=== PATIENT | female | born 1985 | race Caucasian/White ===

== ENCOUNTER 2019-02-03 19:41 | Outpatient (CLI) | payer MEDICAID ==
[2019-02-03 20:31] LABS: ADD UMIC NO; UR ASCORBIC ACID NEGATIVE (NEGATIVE); UR BILIRUBIN (Dip) NEGATIVE (NEGATIVE); UR BLOOD (Dip) NEGATIVE (NEGATIVE); UR CLARITY CLEAR (CLEAR); UR COLOR STRAW (YELLOW); UR GLUCOSE (Dip) NEGATIVE (NEGATIVE); UR KETONES (Dip) NEGATIVE (NEGATIVE); UR LEUKOCYTE ESTERASE (Dip) NEGATIVE Leu/ul (NEGATIVE); UR NITRITE (Dip) NEGATIVE (NEGATIVE); UR SPECIFIC GRAVITY (Dip) 1.005 (1.003-1.030); UR TOTAL PROTEIN (Dip) NEGATIVE (NEGATIVE); UR UROBILINOGEN (Dip) NEGATIVE (NEGATIVE)
[2019-02-03 20:33] LABS: ADD MAN DIFF? NO
[2019-02-03 20:34] LABS: WHITE BLOOD COUNT 10.3 10^3/ul (4.8-10.8)
[2019-02-03 20:34] LABS: BASOPHILS % 0.4 % (0.0-2.0); EOSINOPHILS # 0.1 10^3/ul (0.0-0.5); EOSINOPHILS % 1.2 % (0.0-7.0); HEMATOCRIT 34.7 % (37.0-47.0); HEMOGLOBIN 11.8 g/dl (12.0-16.0); LYMPHOCYTES # 1.7 10^3/ul (0.8-2.9); LYMPHOCYTES % 16.4 % (15.0-51.0); MEAN PLATELET VOLUME 10.2 fl (7.4-10.4); MONOCYTE # 0.7 10^3/ul (0.3-0.9); MONOCYTES % 6.7 % (0.0-11.0); NEUTROPHIL # 7.6 10^3/ul (1.6-7.5); NEUTROPHILS % 74.2 % (39.0-77.0); PLATELET COUNT 236 10^3/UL (140-415); RED BLOOD COUNT 3.69 10^6/ul (4.20-5.40); RED CELL DISTRIBUTION WIDTH 12.6 % (11.5-14.5)
[2019-02-03 20:56] LABS: ALANINE AMINOTRANSFERASE 20 IU/L (13-69); ALBUMIN 3.5 g/dl (3.3-4.9); ALBUMIN/GLOBULIN RATIO 1.16; ALKALINE PHOSPHATASE 67 IU/L (42-121); ANION GAP 12 (5-13); ASPARTATE AMINO TRANSFERASE 17 IU/L (15-46); BILIRUBIN,INDIRECT 0.3 mg/dl (0-1.1); BILIRUBIN,TOTAL 0.3 mg/dl (0.2-1.3); BLOOD UREA NITROGEN 9 mg/dl (7-20); CALCIUM 8.9 mg/dl (8.4-10.2); CARBON DIOXIDE 21 mmol/L (21-31); CHLORIDE 104 mmol/L (97-110); CREATININE 0.41 mg/dl (0.44-1.00); Estimated GFR > 60 mL/min (>60); GLUCOSE 88 mg/dl (70-220); POTASSIUM 3.9 mmol/L (3.5-5.1); SODIUM 137 mmol/L (135-144); TOTAL PROTEIN 6.5 g/dl (6.1-8.1)
== END 2019-02-03 21:45 | disposition home or self-care (01) ==
LOC: OBT 19:41 → L-D 19:43 → OBT 21:45
DX: O26.892 Other specified pregnancy related conditions, second trimester (principal); R10.2 Pelvic and perineal pain; Z3A.26 26 weeks gestation of pregnancy
CPT/HCPCS: 76815; 76817; 80053; 81003; 85025

== ENCOUNTER 2019-02-19 16:41 | Outpatient (CLI) | payer MEDICAID ==
[2019-02-19 17:51] LABS: WHITE BLOOD COUNT 8.8 10^3/ul (4.8-10.8)
[2019-02-19 17:51] LABS: ADD MAN DIFF? NO; BASOPHILS % 0.3 % (0.0-2.0); EOSINOPHILS # 0.1 10^3/ul (0.0-0.5); EOSINOPHILS % 0.8 % (0.0-7.0); HEMATOCRIT 34.1 % (37.0-47.0); HEMOGLOBIN 11.5 g/dl (12.0-16.0); LYMPHOCYTES # 1.4 10^3/ul (0.8-2.9); LYMPHOCYTES % 15.8 % (15.0-51.0); MEAN CORPUSCULAR HEMOGLOBIN 31.8 pg (29.0-33.0); MEAN CORPUSCULAR HGB CONC 33.7 g/dl (32.0-37.0); MEAN CORPUSCULAR VOLUME 94.2 fl (82.0-101.0); MEAN PLATELET VOLUME 10.2 fl (7.4-10.4); MONOCYTE # 0.7 10^3/ul (0.3-0.9); MONOCYTES % 7.5 % (0.0-11.0); NEUTROPHIL # 6.6 10^3/ul (1.6-7.5); NEUTROPHILS % 74.6 % (39.0-77.0); PLATELET COUNT 244 10^3/UL (140-415); RED BLOOD COUNT 3.62 10^6/ul (4.20-5.40); RED CELL DISTRIBUTION WIDTH 12.6 % (11.5-14.5)
[2019-02-19 17:57] LABS: ADD UMIC NO; UR ASCORBIC ACID NEGATIVE (NEGATIVE); UR BACTERIA FEW /HPF (NONE SEEN); UR BILIRUBIN (Dip) NEGATIVE (NEGATIVE); UR BLOOD (Dip) NEGATIVE (NEGATIVE); UR CLARITY SLIGHTLY CLOUDY (CLEAR); UR COLOR YELLOW (YELLOW); UR GLUCOSE (Dip) NEGATIVE (NEGATIVE); UR KETONES (Dip) NEGATIVE (NEGATIVE); UR LEUKOCYTE ESTERASE (Dip) NEGATIVE Leu/ul (NEGATIVE); UR NITRITE (Dip) NEGATIVE (NEGATIVE); UR RBC 1 /HPF (0-5); UR SPECIFIC GRAVITY (Dip) 1.012 (1.003-1.030); UR SQUAMOUS EPITHELIAL CELL FEW /HPF (FEW); UR TOTAL PROTEIN (Dip) NEGATIVE (NEGATIVE); UR UROBILINOGEN (Dip) NEGATIVE (NEGATIVE); UR WBC 2 /HPF (0-5)
[2019-02-19 18:10] LABS: ALANINE AMINOTRANSFERASE 19 IU/L (13-69); ALBUMIN 3.3 g/dl (3.3-4.9); ALKALINE PHOSPHATASE 83 IU/L (42-121); ANION GAP 8 (5-13); ASPARTATE AMINO TRANSFERASE 17 IU/L (15-46); BILIRUBIN,INDIRECT 0.2 mg/dl (0-1.1); BILIRUBIN,TOTAL 0.2 mg/dl (0.2-1.3); BLOOD UREA NITROGEN 10 mg/dl (7-20); CALCIUM 8.9 mg/dl (8.4-10.2); CARBON DIOXIDE 22 mmol/L (21-31); CHLORIDE 106 mmol/L (97-110); CREATININE 0.45 mg/dl (0.44-1.00); Estimated GFR > 60 mL/min (>60); GLUCOSE 96 mg/dl (70-220); SODIUM 136 mmol/L (135-144); TOTAL PROTEIN 6.3 g/dl (6.1-8.1)
[2019-02-19] MEDS: ACETAMINOPHEN 500 MG TAB PO (21:54)
== END 2019-02-19 23:10 | disposition home or self-care (01) ==
LOC: OBT 16:41 → L-D 16:42 → OBT 23:10
DX: O26.892 Other specified pregnancy related conditions, second trimester (principal); Z3A.28 28 weeks gestation of pregnancy; R10.2 Pelvic and perineal pain
CPT/HCPCS: 76700; 76818; 80053; 80076; 81001; 81003; 85025

== ENCOUNTER 2019-04-21 13:48 | Outpatient (CLI) | payer MEDICAID | END 2019-04-21 15:40 | disposition home or self-care (01) | LOC: OBT 13:48 → L-D 13:50 → OBT 15:40 | DX: O36.8130 Decreased fetal movements, third trimester, not applicable or unspecified (principal); Z3A.37 37 weeks gestation of pregnancy | CPT/HCPCS: 76818 ==

== ENCOUNTER 2019-05-14 22:42 | Inpatient (IN) | payer MEDICAID ==
[2019-05-15] MEDS ORDERED: BUTORPHANOL 2 MG INJ IV
[2019-05-15] MEDS ORDERED: IBUPROFEN 600 MG TAB PO
[2019-05-15] MEDS ORDERED: OXYTOCIN 30 UNITS/LR 500 ML IV ×2
[2019-05-15] MEDS ORDERED: CARBOPROST 250 MCG INJ IM
[2019-05-15] MEDS ORDERED: LIDOCAINE 1% (MPF) 30 ML INJ INJ
[2019-05-15] MEDS ORDERED: METHYLERGONOVINE 0.2 MG INJ IM
[2019-05-15] MEDS ORDERED: MISOPROSTOL 200 MCG TAB PR
[2019-05-15] MEDS ORDERED: MISOPROSTOL 50 MCG CAPSULE PO (01:00)
[2019-05-15] MEDS: LACTATED RINGER'S 1,000 ML IV ×3 (01:58→16:49)
[2019-05-15 02:16] LABS: ADD MAN DIFF? NO
[2019-05-15 02:18] LABS: WHITE BLOOD COUNT 8.6 10^3/ul (4.8-10.8)
[2019-05-15 02:18] LABS: BASOPHILS % 0.3 % (0.0-2.0); EOSINOPHILS # 0.1 10^3/ul (0.0-0.5); EOSINOPHILS % 0.9 % (0.0-7.0); HEMATOCRIT 39.5 % (37.0-47.0); HEMOGLOBIN 13.3 g/dl (12.0-16.0); LYMPHOCYTES % 23.5 % (15.0-51.0); MEAN CORPUSCULAR HGB CONC 33.7 g/dl (32.0-37.0); MEAN PLATELET VOLUME 12.1 fl (7.4-10.4); MONOCYTE # 0.7 10^3/ul (0.3-0.9); MONOCYTES % 7.5 % (0.0-11.0); NEUTROPHIL # 5.7 10^3/ul (1.6-7.5); NEUTROPHILS % 66.8 % (39.0-77.0); NUCLEATED RED BLOOD CELLS% 0.2 /100WBC (0.0-0.0); PLATELET COUNT 171 10^3/UL (140-415); RED BLOOD COUNT 4.16 10^6/ul (4.20-5.40); RED CELL DISTRIBUTION WIDTH 12.6 % (11.5-14.5)
[2019-05-15 02:38] LABS: INR 0.78; PT RATIO 0.9
[2019-05-15 02:39] LABS: PARTIAL THROMBOPLASTIN TIME 26.5 Sec (23.0-35.0)
[2019-05-15] MEDS: MISOPROSTOL 50 MCG CAPSULE PO ×5 (03:27→21:32)
[2019-05-15 15:51] LABS: RAPID PLASMA REAGIN NONREACTIVE (NR)
[2019-05-16] MEDS: LACTATED RINGER'S 1,000 ML IV ×3 (00:40→16:43)
[2019-05-16] MEDS: MISOPROSTOL 50 MCG CAPSULE PO (01:47)
[2019-05-16] MEDS: BUTORPHANOL 2 MG INJ IV ×3 (08:40→14:53)
[2019-05-16] MEDS: OXYTOCIN 30 UNITS/LR 500 ML IV (08:47)
[2019-05-17] MEDS: LACTATED RINGER'S 1,000 ML IV ×5 (00:03→22:04)
[2019-05-17] MEDS: OXYTOCIN 30 UNITS/LR 500 ML IV (00:13)
[2019-05-17] MEDS ORDERED: FENTAnyl 2MCG/ML-ROPIV 0.2% 100 ML (19:07)
[2019-05-18] MEDS: OXYTOCIN 30 UNITS/LR 500 ML IV ×3 (02:03→23:26)
[2019-05-18] MEDS ORDERED: ONDANSETRON 4 MG INJ IV ×2 (04:00→20:00)
[2019-05-18] MEDS ORDERED: NALOXONE (0.4 MG/ML) INJ IV ×2 (04:00→20:00)
[2019-05-18] MEDS: FENTAnyl 2MCG/ML-ROPIV 0.2% 100 ML BAG EPI ×2 (04:08→11:25)
[2019-05-18] MEDS: LACTATED RINGER'S 1,000 ML IV ×2 (06:17→14:13)
[2019-05-18] MEDS ORDERED: morphine SULFATE/PF (10 MG/10 ML) INJ (18:51)
[2019-05-18] MEDS ORDERED: ONDANSETRON 4 MG INJ (18:52)
[2019-05-18] MEDS ORDERED: OXYTOCIN 10 UNIT INJ ×2 (18:52→19:26)
[2019-05-18] MEDS ORDERED: PHENYLephrine 10 MG INJ (19:24)
[2019-05-18] MEDS ORDERED: morphine 2 MG INJ IV (20:00)
[2019-05-18] MEDS ORDERED: DIPHENHYDRAMINE 50 MG INJ IV (20:00)
[2019-05-18] MEDS: KETOROLAC 30 MG INJ IV (20:19)
[2019-05-18] MEDS: CEFAZOLIN 2 GM/50 ML (PMX) 50 ML IVPB (20:51)
[2019-05-18] MEDS ORDERED: HYDROCODONE/APAP (5/325) TAB PO (23:30)
[2019-05-18] MEDS: IBUPROFEN 800 MG TAB PO (23:30)
[2019-05-18] MEDS ORDERED: NACL 0.9% 3 ML SYG IV (23:30)
[2019-05-18] MEDS ORDERED: OXYTOCIN 30 UNITS/LR 500 ML IV (23:30)
[2019-05-18] MEDS ORDERED: LANOLIN HPA 1 PKT TOP (23:30)
[2019-05-18] MEDS ORDERED: NA PHOSPHATE/BIPHOS 133 ML ENEMA PR (23:30)
[2019-05-18] MEDS ORDERED: MISOPROSTOL 200 MCG TAB PR (23:30)
[2019-05-18] MEDS ORDERED: CARBOPROST 250 MCG INJ IM (23:30)
[2019-05-18] MEDS ORDERED: METHYLERGONOVINE 0.2 MG INJ IM (23:30)
[2019-05-19] MEDS: LACTATED RINGER'S 1,000 ML IV (04:35)
[2019-05-19] MEDS: IBUPROFEN 800 MG TAB PO ×3 (06:00→22:55)
[2019-05-19] MEDS: KETOROLAC 30 MG INJ IV ×2 (07:03→16:12)
[2019-05-19 08:11] LABS: ADD MAN DIFF? NO
[2019-05-19 08:15] LABS: BASOPHILS % 0.2 % (0.0-2.0); EOSINOPHILS # 0.1 10^3/ul (0.0-0.5); EOSINOPHILS % 0.4 % (0.0-7.0); HEMATOCRIT 31.7 % (37.0-47.0); HEMOGLOBIN 10.9 g/dl (12.0-16.0); LYMPHOCYTES # 1.4 10^3/ul (0.8-2.9); LYMPHOCYTES % 10.4 % (15.0-51.0); MEAN CORPUSCULAR HEMOGLOBIN 32.3 pg (29.0-33.0); MEAN CORPUSCULAR HGB CONC 34.4 g/dl (32.0-37.0); MEAN CORPUSCULAR VOLUME 94.1 fl (82.0-101.0); MEAN PLATELET VOLUME 11.8 fl (7.4-10.4); MONOCYTE # 1.1 10^3/ul (0.3-0.9); MONOCYTES % 8.1 % (0.0-11.0); NEUTROPHILS % 80.6 % (39.0-77.0); PLATELET COUNT 145 10^3/UL (140-415); RED BLOOD COUNT 3.37 10^6/ul (4.20-5.40); RED CELL DISTRIBUTION WIDTH 12.5 % (11.5-14.5)
[2019-05-19 08:15] LABS: WHITE BLOOD COUNT 13.6 10^3/ul (4.8-10.8)
[2019-05-19] MEDS: MINERAL OIL LIGHT 10 ML VIAL TOP (22:57)
[2019-05-20] MEDS: IBUPROFEN 800 MG TAB PO ×3 (06:57→22:56)
[2019-05-21] MEDS: IBUPROFEN 800 MG TAB PO (05:39)
[2019-05-21] MEDS: MEASLES,MUMPS,RUBELLA VACCINE INJ SC* (09:00)
[2019-05-21] MEDS: DIPHTH/TET/ACEL PERTUSS (ADULT) 0.5 ML VIAL IM* (12:58)
== END 2019-05-21 14:28 | disposition home or self-care (01) | DRG 787 ==
LOC: OBT 22:42 → L-D 05-15 03:09 → OBT 23:33 → L-D 05-18 20:38 → PP1 05-18 22:39
PROVIDERS: Obstetrics & Gynecology
PROC: 10D00Z1 Extraction of Products of Conception, Low, Open Approach (ICD-10-PCS; principal; 2019-05-18 18:45)
PROC: 10907ZC Drainage of Amniotic Fluid, Therapeutic from Products of Conception, Via Natural or Artificial Opening (ICD-10-PCS; 2019-05-18 18:45)
DX: O48.0 Post-term pregnancy (principal); O41.03X0 Oligohydramnios, third trimester, not applicable or unspecified; Z3A.40 40 weeks gestation of pregnancy; O62.0 Primary inadequate contractions; Z37.0 Single live birth
CPT/HCPCS: 62322; 76815; 85025; 85610; 85730; 86592; 86850; 86900; 86901; 88307; 99464